=== PATIENT | male | born 1935 | race Two or more races ===

== ENCOUNTER 2020-11-24 06:42 | Day surgery (SDC) | payer OTHER | END 2020-11-24 11:42 | disposition home or self-care (01) | LOC: AMB-ENDOS 06:42 | PROVIDERS: ATTEND Surgery | DX: D12.0 Benign neoplasm of cecum (principal); D12.2 Benign neoplasm of ascending colon; K64.8 Other hemorrhoids; Z20.828 Contact with and (suspected) exposure to other viral communicable diseases; Z12.11 Encounter for screening for malignant neoplasm of colon ==